=== PATIENT | female | born 1930 | race Caucasian/White ===

== ENCOUNTER → 2018-09-11 | Outpatient (CLI) | payer MEDICARE, BC ==
[~2018-09-11] MED LIST: AVANDIA; BABY81CH; CALCIUM/VIT D; CAPT25TA3; CAPT50TA4; CAPTPOW; COUM1TAB17; GLIPPOW; HUMUINJ; LASI40TA; LIPI10TA; LOPR100T; LOPR50TA; MACR50CA; NORV5TAB; NOVOLOG; PRIN10TA; PROPYLTHIOURACIL; PROT1TAB2; SERO1TAB3; THERGRAN; VITAMIN D
[2018-09-11 13:24] LABS: INR 2.69; PROTHROMBIN TIME 28.4 SECONDS (11.8-14.0)
== END ==
LOC: M WUC 11:20
DX: I26.99 Other pulmonary embolism without acute cor pulmonale (principal)

== ENCOUNTER → 2018-10-07 | Outpatient (CLI) | payer MEDICARE, BC ==
[2018-10-07 13:53] LABS: INR 2.56; PROTHROMBIN TIME 27.4 SECONDS (11.8-14.0)
== END ==
LOC: M WUC 10:43
PROVIDERS: ATTEND Internal Medicine
DX: I26.99 Other pulmonary embolism without acute cor pulmonale (principal)

== ENCOUNTER → 2018-11-17 | Outpatient (CLI) | payer MEDICARE, BC ==
[2018-11-17 13:55] LABS: INR 2.26; PROTHROMBIN TIME 24.7 SECONDS (11.8-14.0)
== END ==
LOC: M WUC 10:50
PROVIDERS: ATTEND Internal Medicine
DX: I26.99 Other pulmonary embolism without acute cor pulmonale (principal)

== ENCOUNTER → 2019-10-07 | Outpatient (CLI) | payer MEDICARE, BC ==
[2019-10-07 13:42] LABS: INR 2.87
== END ==
LOC: M WUC 10:01
PROVIDERS: ATTEND Internal Medicine
DX: Z79.01 Long term (current) use of anticoagulants (principal)